=== PATIENT | male | born 1985 | race Native Hawaiian/Other Pacific Islander ===

== ENCOUNTER 2021-03-14 21:26 | Emergency (ER) | payer BC ==
--- NOTE | 2021-03-14 21:54 | ERPHSYRPT ---
- History of Present Illness Time Seen by Provider: 03/14/21 21:32 Source: patient Exam Limitations: no limitations Physician History: 35 years old right-handed dominant male presented in the ER with a laceration right proximal thumb with a sharp knife accidentally at home prior to arrival. Bleeding initially, stopped with applying pressure and [id number] Steri- Strips. Denies any numbness tingling or weakness in movements of thumb. Up-to-date with immunizations. Occurred: just prior to arrival Method of Injury: incised Quality: constant, sharpness Severity of Pain-Max: moderate Severity of Pain-Current: mild Extremities Pain Location: thumb: right Modifying Factors: Improves With: immobilization. Worsens With: movement Associated Symptoms: none Allergies/Adverse Reactions: Penicillins Allergy (Intermediate, Verified 03/14/21 22:01) Hives - Review of Systems Constitutional: No Symptoms Eyes: No Symptoms Ears, Nose, & Throat: No Symptoms Respiratory: No Symptoms Cardiac: No Symptoms Abdominal/Gastrointestinal: No Symptoms Genitourinary Symptoms: No Symptoms Musculoskeletal: Injury, Joint Pain Neurological: No Symptoms Hematologic/Lymphatic: No Symptoms Immunological/Allergic: No Symptoms - Nursing Vital Signs Nursing Vital Signs: Initial Vital Signs Respiratory Rate 16 03/14/21 21:33 Pain Scale Pain Intensity 0 - Physical Exam General Appearance: no apparent distress, alert Eyes, Ears, Nose, Throat Exam: normal ENT inspection Neck Exam: normal inspection, full range of motion Cardiovascular/Respiratory Exam: normal breath sounds, regular rate/rhythm Shoulder Exam: normal inspection, no evidence of injury, normal ROM Elbow/Forearm Exam: normal inspection, no evidence of injury, normal ROM Wrist Exam: normal inspection, non-tender, no evidence of injury, normal ROM Hand Exam: normal ROM, laceration (3 cm linear sharp edges laceration right thumb at metacarpophalangeal joint and proximal phalanx. Minimal oozing. Muscle Deep without any obvious visible tendon laceration. Intact range of motion. Intact sensations distally. Cap refill less than 3 seconds.) Neuro/Tendon Exam: normal sensation, normal motor functions, normal tendon functions Mental Status Exam: alert, oriented x 3, cooperative Skin Exam: normal color SpO2 Interpretation: normal SpO2: 97 O2 Delivery: Room Air Procedures - Laceration/Wound Repair Right Finger Time of Procedure: 21:52 Wound Location: Right, head Wound Length (cm): 3 Wound's Depth, Shape: into muscle, linear Wound Explored: clean Irrigated: Yes Hibiclens Prep: Yes Anesthesia: 1% Lidocaine Volume Anesthetic (ccs): 3 Wound Repaired With: sutures Suture Size/Type: 4-0, nylon Number of Sutures: 6 Layer Closure?: No Sterile Dressing Applied?: Yes Splint Applied?: Yes Ordered Tests: Active Orders 24 hr Category Date Time Status Prepare for Sutures STAT Care 03/14/21 22:09 Completed Splint STAT Care 03/14/21 22:09 Completed Sutures STAT Care 03/14/21 22:11 Completed Wound Care STAT Care 03/14/21 22:09 Completed Medication Summary Discontinued Medications Generic Name Dose Route Start Last Admin Trade Name Freq PRN Reason Stop Dose Admin Bacitracin Zinc 0.9 gm 03/14/21 22:09 03/14/21 22:27 Baciguent Packet TP 03/14/21 22:10 0.9 gm STAT ONE Administration Bacitracin Zinc Confirm 03/14/21 22:13 Baciguent Packet Administered 03/14/21 22:14 Dose 1 gm .ROUTE .STK-MED ONE Lidocaine HCl 5 ml 03/14/21 22:09 03/14/21 22:27 Xylocaine 1% Hcl 20 Ml Mdv IJ 03/14/21 22:10 5 ml STAT ONE Administration Lidocaine HCl Confirm 03/14/21 22:13 Xylocaine 1% Hcl 20 Ml Mdv Administered 03/14/21 22:14 Dose 5 ml .ROUTE .STK-MED ONE - Progress Progress: improved Progress Note: 03/14/21 21:52 Wound is cleaned/irrigated and sutures applied. No apparent restricted range of motion. Intact distal neurovascular. Patient is a [employer] uses right hand/thumb frequently. I would refer him outpatient hand surgery for reevaluation if there is any partial tendon lesion which could be a problem later on. Up-to-date with tetanus. Counseled pt/family regarding: diagnosis, need for follow-up - Departure Departure Disposition: Home Clinical Impression: Thumb laceration Qualifiers: Encounter type: initial encounter Damage to nail status: without damage Foreign body presence: without foreign body Laterality: right Qualified Code(s): S61.011A - Laceration without foreign body of right thumb without damage to nail, initial encounter Condition: Stable Critical Care Time: No Referrals: DOCTOR,NO FAMILY [Primary Care Provider] - PAUL SCALES MD [ACTIVE STAFF] - Follow Up with PCP/3 days BYRON ROGERS MD [NON-STAFF PHY W/O PRIVILEGES] - (1-2 days for reevaluation) Instructions: Laceration Repair With Stitches (DC) Additional Instructions: Hand surgery for reevaluation. Use Tylenol/ibuprofen as needed for pain. Return to ER for intractable pain, difficulty movements, swelling redness discharge/fever or chills. Forms: Work/School Release Form Prescriptions: Ibuprofen 600 mg PO Q6HPRN PRN 10 Days #20 tablet PRN Reason: Pain
[2021-03-14] MEDS ORDERED: XYLOCAINE 1% HCL 20 ML MDV IJ ONE (22:09)
[2021-03-14] MEDS ORDERED: BACIGUENT PACKET TP ONE (22:09)
[2021-03-14] MEDS ORDERED: XYLOCAINE 1% HCL 20 ML MDV ONE (22:13)
[2021-03-14] MEDS ORDERED: BACIGUENT PACKET ONE (22:13)
[2021-03-14 22:41] VITALS: BP 116/63; PULSE 60
[2021-03-14 23:53] VITALS: O2SAT 97
== END 2021-03-14 22:39 | disposition home or self-care (01) ==
LOC: ED 21:26
DX: S61.011A Laceration without foreign body of right thumb without damage to nail, initial encounter (principal); W45.8XXA Other foreign body or object entering through skin, initial encounter; W26.0XXA Contact with knife, initial encounter; Y93.89 Activity, other specified; Y92.009 Unspecified place in unspecified non-institutional (private) residence as the place of occurrence of the external cause
CPT/HCPCS: 12002; 96372; 99283; A9270-GY